=== PATIENT | male | born 1990 | race Caucasian/White ===

== ENCOUNTER 2016-11-12 03:41 | Emergency (ER) | payer OTHER ==
[2016-11-12 04:29] VITALS: BP 116/88; PULSE 75; TEMP 97.9
[2016-11-12] MEDS ORDERED: CEPHALEXIN MONOHYDRATE 500 MG CAPSULE (UD) PO ONE (05:06)
[2016-11-12] MEDS ORDERED: IBUPROFEN 600 MG TABLET (FP) PO ONE ×2 (05:06→05:16)
--- NOTE | 2016-11-12 05:11 | PDOC ---
History of Present Illness - General Chief Complaint: Abscess Boil Stated Complaint: ABSCESS/BOIL Time Seen by Provider: 11/12/16 04:41 History Source: Patient Exam Limitations: No Limitations - History of Present Illness Initial Comments: 11/12/16 05:07 26yo Male patient presents to ED c/o boil to buttocks. 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 Patient reports having a history of this. He denies any other complaints at this time. Timing/Duration: reports: week Severity: Yes: moderate Location: reports: other Respiratory Risk Factors: denies: no cause identified, exposure to illness, exposure to allergen, foods, insect bite, insect sting, medications, pollen, soaps, other Modifying Factors: worse with: antihistamine, calamine lotion, prednisone, scratching, topical steriods, other Associated Symptoms: denies: denies symptoms, blisters, change in skin texture, edema, fever, flushing, headache, hives, jaundice, malaise, nasal congestion, numbness, pallor, paresthesia, petechiae, rash, sore throat, swelling/mass/lumps , tingling, other Past History - Travel Traveled outside of the country in the last 30 days: No Close contact w/someone who was outside of country & ill: No - Past Medical History Allergies/Adverse Reactions: Allergies Allergy/AdvReac Type Severity Reaction Status Date / Time No Known Allergies Allergy Verified 11/12/16 04:29 Home Medications: Ambulatory Orders No Home Medications 0 dose .ROUTE UTDICT 02/22/12 Cephalexin Monohydrate [Keflex -] 500 mg PO Q8H #30 capsule 11/12/16 Other medical history: denies - Immunization History Immunization Up to Date: (unknown) - Psycho/Social/Smoking Cessation Hx Anxiety: No Suicidal Ideation: No Smoking Status: No Smoking History: Current every day smoker Have you smoked in the past 12 months: Yes Number of Cigarettes Smoked Daily: 1 Information on smoking cessation initiated: No Hx Alcohol Use: No Drug/Substance Use Hx: Yes (marijuana daily) Substance Use Type: Marijuana Review of Systems - Review of Systems Integumentary: Yes: Other (Abscess) All Other Systems: Reviewed and Negative *Physical Exam - Vital Signs Last Vital Signs Temp Pulse Resp BP Pulse Ox 97.9 F 75 18 116/88 100 11/12/16 04:27 11/12/16 04:27 11/12/16 04:27 11/12/16 04:27 11/12/16 04:27 - Physical Exam General Appearance: Yes: Nourished, Appropriately Dressed. No: Apparent Distress, Mild Distress, Moderate Distress, Severe Distress Respiratory/Chest: positive: Lungs Clear, Normal Breath Sounds. negative: Chest Tender, Respiratory Distress, Accessory Muscle Use, Labored Respiration, Rapid RR Cardiovascular: positive: Regular Rhythm, Regular Rate Gastrointestinal/Abdominal: positive: Normal Bowel Sounds, Soft. negative: Distended, Guarding, Rebound, Tenderness Musculoskeletal: positive: Normal Inspection. negative: CVA Tenderness Extremity: positive: Normal Capillary Refill, Normal Inspection, Normal Range of Motion. negative: Pedal Edema, Swelling, Calf Tenderness, Erythema, Inflammation Integumentary: positive: Normal Color, Dry, Warm, Other (Abscess to left buttocks, non-fluctuant. Mild redness. Tender to touch. 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 Take medications as prescribed. Return if symptoms worsen for further evaluation. Print Language: UPPER SORBIAN
[2016-11-12] MEDS ORDERED: CEPHALEXIN MONOHYDRATE 250 MG CAPSULE (FP) ONE (05:16)
== END 2016-11-12 05:22 | disposition home or self-care (01) ==
LOC: JER 03:41
DX: L02.31 Cutaneous abscess of buttock (principal); F17.210 Nicotine dependence, cigarettes, uncomplicated
CPT/HCPCS: 99282-25

== ENCOUNTER 2016-11-14 23:20 | Emergency (ER) | payer OTHER ==
[2016-11-14 23:24] VITALS: BP 117/72; PULSE 102; TEMP 97.9; BMI 20.7
--- NOTE | 2016-11-15 00:51 | PDOC ---
History of Present Illness - General Chief Complaint: Abscess Boil Stated Complaint: ANAL ABSCESS Time Seen by Provider: 11/14/16 23:45 - History of Present Illness Initial Comments: 11/15/16 02:54 presents with increased swelling to L buttock x 5 days. no improvement on Keflex x 3 days No fever. Hurts when he sits on it. pmh: denies fhx: non-contributory ros: reviewed and otherwise negaive o/e NAD no diaphoresis rrr abd nontender 7 cm abscess l buttock procedure: I+D betadine, lidocaine 2% 5cc, 1 cm incision, copious pus expressed, irrigated, packed a/p buttock abscess I+D packing removal 36 hours Past History - Past Medical History Allergies/Adverse Reactions: Allergies Allergy/AdvReac Type Severity Reaction Status Date / Time No Known Allergies Allergy Verified 11/12/16 04:29 Home Medications: Ambulatory Orders No Home Medications 0 dose .ROUTE UTDICT 02/22/12 Cephalexin Monohydrate [Keflex -] 500 mg PO Q8H #30 capsule 11/12/16 Other medical history: ANAL FISTULA W/RECURRENT ABSCESSES - Immunization History Immunization Up to Date: (unknown) - Psycho/Social/Smoking Cessation Hx Anxiety: No Suicidal Ideation: No Smoking Status: No Smoking History: Current every day smoker Have you smoked in the past 12 months: Yes Number of Cigarettes Smoked Daily: 1 Information on smoking cessation initiated: Yes 'Breaking Loose' booklet given: 11/14/16 Hx Alcohol Use: No Drug/Substance Use Hx: Yes (marijuana daily) Substance Use Type: Marijuana *Physical Exam - Vital Signs Last Vital Signs Temp Pulse Resp BP Pulse Ox 97.9 F 102 H 16 117/72 98 11/14/16 23:22 11/14/16 23:22 11/14/16 23:22 11/14/16 23:22 11/14/16 23:22 *DC/Admit/Observation/Transfer Diagnosis at time of Disposition: Abscess of buttock, left - Discharge Dispostion Disposition: HOME Condition at time of disposition: Stable - Patient Instructions Printed Discharge Instructions: DI for Anal Abscess Additional Instructions: Return to ER for packing removal on Thursday
== END 2016-11-15 00:55 | disposition home or self-care (01) ==
LOC: FER 23:20
PROC: 0H98XZZ Drainage of Buttock Skin, External Approach (ICD-10-PCS; principal; 2016-11-14)
DX: K61.0 Anal abscess (principal); F17.210 Nicotine dependence, cigarettes, uncomplicated
CPT/HCPCS: 10060; 99281-25

== ENCOUNTER 2018-07-12 07:21 | Emergency (ER) | payer OTHER ==
[2018-07-12 07:42] VITALS: BP 112/67; PULSE 80; TEMP 97.9
--- NOTE | 2018-07-12 08:04 | PDOC ---
History of Present Illness - General Chief Complaint: Hemoptysis Stated Complaint: COUGHING UP BLOOD Time Seen by Provider: 07/12/18 07:48 History Source: Patient - History of Present Illness Timing/Duration: reports: other Past History - Past Medical History Allergies/Adverse Reactions: Allergies Allergy/AdvReac Type Severity Reaction Status Date / Time No Known Allergies Allergy Verified 07/12/18 07:35 Home Medications: Ambulatory Orders Azithromycin 250 mg PO ASDIR #6 tablet 07/12/18 Benzonatate [Tessalon Pearls -] 100 mg PO TID #21 capsule 07/12/18 COPD: No CHF: No DVT: No - Immunization History Immunization Up to Date: Yes (unknown) - Suicide/Smoking/Psychosocial Hx Smoking Status: No Smoking History: Never smoked Have you smoked in the past 12 months: Yes Number of Cigarettes Smoked Daily: 1 Information on smoking cessation initiated: No 'Breaking Loose' booklet given: 11/14/16 Hx Alcohol Use: No Drug/Substance Use Hx: No Substance Use Type: Marijuana Review of Systems - Review of Systems Constitutional: No: Chills, Fever, Unexplained wgt Loss Respiratory: Yes: Cough. No: Shortness of Breath Cardiac (ROS): Yes: Chest Pain. No: Palpitations *Physical Exam - Vital Signs Last Vital Signs Temp Pulse Resp BP Pulse Ox 97.9 F 80 17 112/67 97 07/12/18 07:35 07/12/18 07:35 07/12/18 07:35 07/12/18 07:35 07/12/18 07:35 - Physical Exam General Appearance: Yes: Appropriately Dressed. No: Apparent Distress HEENT: positive: Normal ENT Inspection, Normal Voice Neck: positive: Supple. negative: Lymphadenopathy (R), Lymphadenopathy (L) Respiratory/Chest: positive: Normal Breath Sounds. negative: Respiratory Distress Cardiovascular: positive: Regular Rate, S1, S2 Integumentary: positive: Dry, Warm Neurologic: positive: Fully Oriented, Alert, Normal Mood/Affect Moderate Sedation - Procedure Monitoring Vital Signs: Procedure Monitoring Vital Signs Temperature 97.9 F 07/12/18 07:35 Pulse Rate 80 07/12/18 07:35 Respiratory Rate 17 07/12/18 07:35 Blood Pressure 112/67 07/12/18 07:35 O2 Sat by Pulse Oximetry (%) 97 07/12/18 07:35 Medical Decision Making - Medical Decision Making 07/12/18 08:02 28-year-old male, > 10 pack year history, states he quit a month ago, here with persistent cough 1 month, now notices trace of bright red blood in sputum. Reports chest pain only with coughing. Denies shortness of breath, fever, chills or unexplained weight loss. Taking [id number] meds with no relief per patient. No h/o PNA. No recent travel or known sick contacts See exam Persistent cough in smoker Quit > 1 month ago No f/c No unexplained weight loss Stable w/ clear chest/lungs -cxr -anticipate dispo w/ supportive tx -continued smoking cessation strongly encouraged 07/12/18 08:39 CXR w/ hyperinflation as d/w Dr Brenner. Pt made aware that he has some early signs of possible COPD and needs to continue smoking cessation to prevent further complications. Will dc w/ zpack as discussed with ED attending. Prescription for Tessalon also given. Patient encouraged to follow-up with PMD *DC/Admit/Observation/Transfer Diagnosis at time of Disposition: Cough - Discharge Dispostion Disposition: HOME Condition at time of disposition: Good - Prescriptions Prescriptions: Azithromycin 250 mg PO ASDIR #6 tablet Benzonatate [Tessalon Pearls -] 100 mg PO TID #21 capsule - Referrals - Patient Instructions Printed Discharge Instructions: Cough, Serious Ways to Stop Smoking, Reasons to Quit Smoking Additional Instructions: Take medications as directed. Please continue to refrain from smoking to prevent conditions like COPD/cancer, etc as discussed today Please follow up with your PMD - Post Discharge Activity
--- NOTE | 2018-07-12 08:21 | PDOC ---
*Physical Exam - Vital Signs Last Vital Signs Temp Pulse Resp BP Pulse Ox 97.9 F 80 18 112/67 97 07/12/18 08:11 07/12/18 08:11 07/12/18 08:11 07/12/18 08:11 07/12/18 08:11 Medical Decision Making - Medical Decision Making 07/12/18 08:21 Pt seen by the Advanced Practice Provider under my direct supervision Ancillary studies reviewed I agree with plan as outlined by the Advanced Practice Provider KEVYN Duarte *DC/Admit/Observation/Transfer Diagnosis at time of Disposition: Cough - Discharge Dispostion Disposition: HOME Condition at time of disposition: Good - Prescriptions Prescriptions: Azithromycin 250 mg PO ASDIR #6 tablet Benzonatate [Tessalon Pearls -] 100 mg PO TID #21 capsule - Referrals - Patient Instructions Printed Discharge Instructions: Serious Ways to Stop Smoking, Cough, Reasons to Quit Smoking Additional Instructions: Take medications as directed. Please continue to refrain from smoking to prevent conditions like COPD/cancer, etc as discussed today Please follow up with your PMD - Post Discharge Activity
== END 2018-07-12 08:50 | disposition home or self-care (01) ==
LOC: JER 07:21
DX: J44.9 Chronic obstructive pulmonary disease, unspecified (principal); F17.210 Nicotine dependence, cigarettes, uncomplicated
CPT/HCPCS: 71046-TC-FY; 99282-25

== ENCOUNTER 2018-09-07 20:28 | Emergency (ER) | payer OTHER ==
[2018-09-07 20:44] VITALS: BP 116/73; PULSE 76; TEMP 98
[2018-09-07] MEDS ORDERED: AZITHROMYCIN 500 MG TABLET PO ONE (21:08)
[2018-09-07] MEDS ORDERED: AZITHROMYCIN 250 MG TABLET ONE (21:09)
[2018-09-07] MEDS ORDERED: CIPROFLOXACIN 250 MG TABLET (RESTRICTED TO ID) PO ONE (21:25)
[2018-09-07] MEDS ORDERED: CIPROFLOXACIN 500 MG TABLET (RESTRICTED TO ID) PO ONE (21:27)
--- NOTE | 2018-09-07 21:32 | PDOC ---
Documentation entered by Darien Peguero SCRIBE, acting as scribe for Adenike Guallpa MD. Adenike Guallpa MD: This documentation has been prepared by the Sudhir hooper Renju, SCRIBE, under my direction and personally reviewed by me in its entirety. I confirm that the documentation accurately reflects all work, treatment, procedures, and medical decision making performed by me. History of Present Illness - General Chief Complaint: Pain, Acute Stated Complaint: BURNING WITH URINATION,PENILE DISCHARGE Time Seen by Provider: 09/07/18 20:39 History Source: Patient Exam Limitations: No Limitations - History of Present Illness Initial Comments: 09/07/18 21:08 HPI The patient is a 28 year old male who presents to the emergency department for evaluation of dysuria and penile discharge. Patient reports a 4 day history of penile discharge after having unprotected sex with his female partner. He notes his partner has developed symptoms and is currently being tested at another facility for STIs. Patient denies history of STIs. The patient denies chest pain, shortness of breath, headache, and dizziness. Denies fevers, chills, nausea, vomiting, diarrhea, constipation, and hematuria. PAST MEDICAL HISTORY: no significant history PAST SURGICAL HISTORY: no significant history FAMILY HISTORY: no pertinent history SOCIAL HISTORY: Pt lives with family and is employed. MEDICATIONS: reviewed ALLERGIES: As per nursing notes Review of Systems General: No fevers or chills, no weakness, no weight loss HEENT: No change in vision. No sore throat,. No ear pain Cardiovascular: No chest pain or shortness of breath Respiratory:No cough, or wheezing. Gastrointestinal: no nausea, vomiting, diarrhea or constipation, No rectal bleeding Genitourinary: (+)Dysuria. (+)Penile discharge. No hematuria, or frequency Musculoskeletal: No joint or muscle pain or swelling Neurologic: No headache, vertigo, dizziness or loss of consciousness Psychiatric: nor depression Skin: No rashes or easy bruising Endocrine: no increased thirst or abnormal weight change Allergic: no skin or latex allergy All other systems reviewed and normal Physical Exam GENERAL: The patient is awake, alert, and fully oriented, in no acute distress. HEAD: Normal with no signs of trauma. EYES: Pupils equal, round and reactive to light, extraocular movements intact, sclera anicteric, conjunctiva clear. GENITOURINARY: No penile lesions or genital lesions. Small amount of yellowish penile discharge on circumcised male. EXTREMITIES: Normal range of motion, no edema. NEUROLOGICAL: Normal speech, normal gait. PSYCH: Normal mood, normal affect. SKIN: Warm, Dry, normal turgor, no rashes or lesions noted. 09/07/18 21:29 Assessment and plan: This is 28-year-old male comes in complaining of penile discharge and a partner who is also complaining of vaginal discharge and odor partner is being seen by me for STD testing and patient came in and requesting STD testing. Patient had swab sent of renal for GC chlamydia and had blood sent for her syphilis and HIV. Patient was treated with ceftriaxone and azithromycin for GC chlamydia. Patient also complaining of burning on urination with a moderate amount of bacteria in his urine so was given Cipro and sent out with a prescription for Cipro to take it twice a day for 7 days. Patient was told no sexual intercourse until after him and his partner both can treated in all the results are back of his STD and her STD testing Past History - Past Medical History Allergies/Adverse Reactions: Allergies Allergy/AdvReac Type Severity Reaction Status Date / Time No Known Allergies Allergy Verified 09/07/18 20:35 Home Medications: Ambulatory Orders Ciprofloxacin [Cipro (Restricted To Id)] 500 mg PO BID #14 tablet 09/07/18 COPD: No CHF: No DVT: No - Immunization History Immunization Up to Date: (unknown) - Suicide/Smoking/Psychosocial Hx Smoking Status: No Smoking History: Current every day smoker Have you smoked in the past 12 months: Yes Number of Cigarettes Smoked Daily: 1 'Breaking Loose' booklet given: 11/14/16 Hx Alcohol Use: No Drug/Substance Use Hx: Yes (marijuana daily) Substance Use Type: Marijuana *Physical Exam - Vital Signs Last Vital Signs Temp Pulse Resp BP Pulse Ox 98 F 76 16 116/73 100 09/07/18 20:36 09/07/18 20:36 09/07/18 20:36 09/07/18 20:36 09/07/18 20:36 ED Treatment Course - ADDITIONAL ORDERS Additional order review: Laboratory Results 09/07/18 20:45 Urine Color Yellow Urine Appearance Slightly Urine pH 8.0 Urine Protein 1+ H Urine Glucose (UA) Negative Urine Ketones Negative Urine Blood 1+ H Urine Nitrite Negative Urine Bilirubin Negative Urine Urobilinogen 0.2 Ur Leukocyte Esterase 1+ Urine RBC 5-10 Urine WBC 40-60 Urine Bacteria Moderate - Medications Given in the ED: ED Medications Discontinued Medications Generic Name Dose Route Start Last Admin Trade Name Carlos PRN Reason Stop Dose Admin Azithromycin 1,000 mg 09/07/18 21:08 09/07/18 21:16 Zithromax PO 09/07/18 21:09 1,000 mg ONCE ONE Administration Ceftriaxone Sodium 500 mg 09/07/18 21:09 09/07/18 21:16 Rocephin - IM 09/07/18 21:10 500 mg ONCE ONE Administration Ciprofloxacin 500 mg 09/07/18 21:27 09/07/18 21:28 Cipro (Restricted To Id) PO 09/07/18 21:28 500 mg ONCE ONE Administration *DC/Admit/Observation/Transfer Diagnosis at time of Disposition: Abnormal penile discharge, Cystitis - Discharge Dispostion Disposition: HOME Condition at time of disposition: Stable Decision to Admit order: No - Prescriptions Prescriptions: Ciprofloxacin [Cipro (Restricted To Id)] 500 mg PO BID #14 tablet - Referrals - Patient Instructions Additional Instructions: Take Cipro 1 tablet twice a day for 7 days for the urinary tract infection. You were treated for gonorrhea and Chlamydia your tests for HIV and syphilis will take several days to come back. We will notify you if either a positive Return to the emergency department immediately with ANY new, persistent or worsening symptoms. Continue any medications as previously prescribed by your physician. You should follow up with your primary doctor as soon as possible regarding today's emergency department visit. . Please make sure your doctor reviews the results of your emergency evaluation. Thank you for coming to the Emergency Department today for your care. It was a pleasure to see you today. Please note that your evaluation is INCOMPLETE until you follow-up with your doctor. - Post Discharge Activity
== END 2018-09-07 21:49 | disposition home or self-care (01) ==
LOC: FER 20:28
DX: N48.9 Disorder of penis, unspecified (principal); N30.90 Cystitis, unspecified without hematuria
CPT/HCPCS: 36415; 81003; 81015; 86593; 87086; 87389; 87491; 87591; 96372; 99282-25

== ENCOUNTER 2020-12-25 09:32 | Emergency (ER) | payer OTHER ==
[2020-12-25] MEDS ORDERED: METHOCARBAMOL 500 MG TABLET PO ONE (09:54)
[2020-12-25] MEDS ORDERED: KETOROLAC TROMETHAMINE 60 MG/2 ML VIAL IM ONE (09:54)
[2020-12-25] MEDS ORDERED: KETOROLAC TROMETHAMINE 60 MG/2 ML VIAL ONE (09:56)
[2020-12-25] MEDS ORDERED: METHOCARBAMOL 500 MG TABLET ONE (09:57)
[2020-12-25 10:04] VITALS: BP 126/74; PULSE 89; TEMP 98.4; BMI 19.5
== END 2020-12-25 11:45 | disposition home or self-care (01) ==
LOC: JER 09:32
PROC: 3E023GC Introduction of Other Therapeutic Substance into Muscle, Percutaneous Approach (ICD-10-PCS; principal; 2020-12-25)
DX: M62.830 Muscle spasm of back (principal); S13.4XXA Sprain of ligaments of cervical spine, initial encounter; V49.40XA Driver injured in collision with unspecified motor vehicles in traffic accident, initial encounter
CPT/HCPCS: 72050-TC-FY; 72100-TC-FY; 99284-25